=== PATIENT | female | born 1965 | race Caucasian/White ===

== ENCOUNTER → 2018-11-03 | Outpatient (CLI) | payer BC, OTHER ==
[~2018-11-03] MED LIST: ACEBUTOLOL HCL200 MG PO; BENADRYL25 M1 PO; BENAZEPRIL HCL10 MG PO; COLESTIPOL HCL1 GM PO; CYMBALTA30 MG PO; METFORMIN HCL500 MG PO; PANTOPRAZOLE SO40 MG PO; TRILEPTAL300 MG PO
--- NOTE | 2018-11-03 12:15 | Diagnostic Imaging Report ---
EXAM: lumbar spine, 5 views DATE: 11/03/2018 INDICATION: Back Pain COMPARISON: None FINDINGS: The alignment is within normal limits. No acute fracture or dislocation. Multilevel degenerative changes with mild disc space narrowing and osteophyte formation as well as severe facet arthropathy, most notably at L3-4 through L5-S1. IMPRESSION: No acute osseous injury. Degenerative changes, most notably with severe facet arthropathy at the lower lumbar spine. Signed by: Taina Bryson MD on 11/03/2018 12:11 PM
== END ==
LOC: RAD 11:20
PROVIDERS: ATTEND Internal Medicine
DX: M54.5 Low back pain (principal)
CPT/HCPCS: 72110

== ENCOUNTER 2021-12-01 23:44 | Emergency (ER) | payer BC ==
[~2021-12-01] VITALS: Ht 170.2 cm; Wt 81.6 kg
[2021-12-01] MEDS ORDERED: IBUPROFEN 400 MG TAB PO STA (23:53)
[2021-12-02] MEDS ORDERED: IBUPROFEN 200 MG TAB ONE (00:07)
[2021-12-02] MEDS ORDERED: CLONIDINE HCL 0.1 MG TAB PO ONE (00:15)
[2021-12-02] MEDS ORDERED: AZITHROMYCIN250 MG PO ×2 (00:36→00:43)
[2021-12-02] MEDS ORDERED: VENTOLIN HFA18 GM INH ×2 (00:36→00:43)
[2021-12-02] MEDS ORDERED: PREDNISONE20 MG PO ×2 (00:36→00:43)
[2021-12-02 00:45] VITALS: BP 168/75
== END 2021-12-02 00:48 | disposition home or self-care (01) ==
LOC: ER 23:47
DX: R50.9 Fever, unspecified (principal); U07.1 COVID-19; R05.9 Cough, unspecified; F31.9 Bipolar disorder, unspecified
CPT/HCPCS: 99283; U0002

== ENCOUNTER → 2023-11-28 | Outpatient (REF) | payer BC ==
[~2023-11-28] MED LIST changes: +AZITHROMYCIN250 MG PO; +PREDNISONE20 MG PO; +VENTOLIN HFA18 GM INH
== END ==
LOC: MRI 08:25
PROVIDERS: ATTEND Family Medicine
DX: R13.12 Dysphagia, oropharyngeal phase (principal); G40.909 Epilepsy, unspecified, not intractable, without status epilepticus
CPT/HCPCS: 74230

== ENCOUNTER → 2023-12-04 | Outpatient (REF) | payer BC ==
[~2023-12-04] MED LIST changes: +MIDAZOLAM HCL 2 MG/2 ML VIAL ONE
== END ==
LOC: MRI 12:15
PROVIDERS: ATTEND Family Medicine
DX: G40.909 Epilepsy, unspecified, not intractable, without status epilepticus (principal); R13.12 Dysphagia, oropharyngeal phase
CPT/HCPCS: 70551; J2250